=== PATIENT | male | born 1975 | race Caucasian/White ===

== ENCOUNTER 2019-04-12 10:02 | Emergency (ER) | payer OTHER ==
[~2019-04-12] VITALS: Ht 193 cm; Wt 98.9 kg
[2019-04-12] MEDS ORDERED: GABAPENTIN100 MG PO (10:11)
[2019-04-12] MEDS ORDERED: LEVAQUIN 750 M750 MG PO (10:11)
[2019-04-12] MEDS ORDERED: LIPITOR10 MG PO (10:12)
[2019-04-12] MEDS ORDERED: PROAIR HFA8.5 GM INH (10:12)
[2019-04-12 10:30] LABS: HEMATOCRIT 37.9 % (42.0-52.0); HEMOGLOBIN 12.9 gm/dL (14.0-18.0); MCH 28.8 pg (26.0-34.0); MCV 84.5 fL (80.0-100.0); MPV 8.2 fl. (7.2-11.1); NUCLEATED RBCS 0 /100WBC; PLATELET COUNT* 146 thou/uL (150-400); RBC 4.48 mil/uL (4.50-6.00); WBC 21.6 thou/uL (4.0-11.0)
[2019-04-12 10:47] LABS: CALCIUM 8.5 mg/dL (8.5-10.1); CREATININE 1.3 mg/dL (0.6-1.3); POTASSIUM 3.6 mmol/L (3.5-5.1)
[2019-04-12 10:51] LABS: ALBUMIN 2.5 g/dL (3.4-5.0); TOTAL BILIRUBIN 0.4 mg/dL (<0.1-1.0); TOTAL PROTEIN 6.7 g/dL (6.4-8.2)
[2019-04-12 11:19] LABS: URINE BILIRUBIN NEGATIVE (Negative); URINE BLOOD NEGATIVE (Negative); URINE CLARITY CLEAR; URINE COLOR YELLOW; URINE GLUCOSE-RANDOM NEGATIVE (Negative); URINE KETONES NEGATIVE (Negative); URINE LEUKOCYTES-REFLEX NEGATIVE (Negative); URINE NITRITE-REFLEX NEGATIVE (Negative); URINE PROTEIN TRACE (Negative); URINE SPECIFIC GRAVITY 1.025 (1.005-1.030); URINE UROBILINOGEN 0.2 E.U./dl (0.2-1.0)
[2019-04-12 11:22] LABS: ABSOLUTE LYMPHOCYTES 0.6 thou/uL (0.8-5.3); ABSOLUTE MONOCYTES 1.9 thou/uL (0.0-1.2); ANISOCYTOSIS 1+; PLATELET ESTIMATE DECREASED; POIKILOCYTOSIS 1+
[2019-04-12 11:47] LABS: INFLUENZA A ANTIGEN Negative (Negative); INFLUENZA B ANTIGEN Negative (Negative)
[2019-04-12] MEDS ORDERED: AMOXICILLIN 50500 MG PO (12:38)
[2019-04-12] MEDS ORDERED: PREDNISONE50 MG PO (12:38)
[2019-04-12] MEDS ORDERED: ZPAK PO (12:38)
[2019-04-12 12:46] VITALS: BP 109/79
--- NOTE | 2019-04-13 10:34 | EKG ---
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
== END 2019-04-12 12:48 | disposition home or self-care (01) ==
LOC: M.ERS 10:02
PROVIDERS: Nurse Practitioner Family
DX: J18.9 Pneumonia, unspecified organism (principal); G43.909 Migraine, unspecified, not intractable, without status migrainosus; E78.5 Hyperlipidemia, unspecified

== ENCOUNTER 2019-05-11 16:35 | Emergency (ER) | payer OTHER ==
[~2019-05-11] VITALS: Ht 193 cm; Wt 99.8 kg
[~2019-05-11 16:35] MED LIST: AMOXICILLIN 50500 MG PO; GABAPENTIN100 MG PO; LEVAQUIN 750 M750 MG PO; LIPITOR10 MG PO; PREDNISONE50 MG PO; PROAIR HFA8.5 GM INH; ZPAK PO
[2019-05-11 18:53] LABS: ABSOLUTE BASOPHILS 0.1 thou/uL (0.0-0.2); ABSOLUTE EOSINOPHILS 0.1 thou/uL (0.0-0.7); ABSOLUTE LYMPHOCYTES 1.2 thou/uL (0.8-5.3); ABSOLUTE MONOCYTES 0.5 thou/uL (0.0-1.2); ABSOLUTE NEUTROPHILS 4.7 thou/uL (1.6-8.1); BASOPHILS 0.8 %; EOSINOPHILS 2.1 %; HEMATOCRIT 37.5 % (42.0-52.0); HEMOGLOBIN 12.8 gm/dL (14.0-18.0); LYMPHOCYTES 17.6 %; MCH 28.5 pg (26.0-34.0); MCHC 34.1 g/dL (28.0-37.0); MCV 83.6 fL (80.0-100.0); MONOCYTES 7.8 %; MPV 7.4 fl. (7.2-11.1); NUCLEATED RBCS 0 /100WBC; PLATELET COUNT* 263 thou/uL (150-400); POLYS 71.7 %; RBC 4.48 mil/uL (4.50-6.00); RDW-CV 13.5 % (10.5-14.5); WBC 6.6 thou/uL (4.0-11.0)
[2019-05-11 19:02] LABS: CALCIUM 8.7 mg/dL (8.5-10.1); CREATININE 1.3 mg/dL (0.6-1.3); POTASSIUM 3.8 mmol/L (3.5-5.1)
[2019-05-11 19:12] LABS: ALBUMIN 3.1 g/dL (3.4-5.0); TOTAL BILIRUBIN 0.2 mg/dL (<0.1-1.0); TOTAL PROTEIN 7.1 g/dL (6.4-8.2)
[2019-05-11 19:52] LABS: URINE BILIRUBIN NEGATIVE (Negative); URINE BLOOD NEGATIVE (Negative); URINE CLARITY CLEAR; URINE COLOR YELLOW; URINE GLUCOSE-RANDOM NEGATIVE (Negative); URINE KETONES NEGATIVE (Negative); URINE LEUKOCYTES-REFLEX NEGATIVE (Negative); URINE NITRITE-REFLEX NEGATIVE (Negative); URINE PROTEIN NEGATIVE (Negative); URINE SPECIFIC GRAVITY >= 1.030 (1.005-1.030); URINE UROBILINOGEN 0.2 E.U./dl (0.2-1.0)
[2019-05-11 20:05] LABS: INFLUENZA A ANTIGEN Positive (Negative); INFLUENZA B ANTIGEN Negative (Negative)
[2019-05-11 20:14] LABS: AMP/METHAMP Negative (Negative); BARBITURATES Negative (Negative); BENZODIAZEPINES Negative (Negative); COCAINE Negative (Negative); METHADONE Negative (Negative); OPIATES Negative (Negative); PCP Negative (Negative); THC Negative (Negative)
[2019-05-11] MEDS ORDERED: BACTRIM DS TAB1 EACH PO (20:42)
[2019-05-11] MEDS ORDERED: ONDANSETRON ODT4 MG PO (20:42)
[2019-05-11] MEDS ORDERED: NORCO 5-325 TA1 EAC1 PO (20:42)
[2019-05-11 20:59] VITALS: BP 122/80
--- NOTE | 2019-05-14 13:56 | EKG ---
[place] [address] ELECTROCARDIOGRAM REPORT Name: FELIX WILLIAMSON [id number] Admission: 05/11/19 Attend Phys: Discharge: 05/11/19 Date of : 71 Date of Service: 05/11/19 1858 Report #: [id number] THIS REPORT FOR: cc: Natan Gold,Natan Velazquez,Keven Espinoza MD [facility] ~ THIS REPORT FOR: //name// [facility] ED Test Date: 2019-05-11 Test Time: 18:58:50 Pat Name: FELIX WILLIAMSON Department: Room: Gender: M [employer]chanisms Design Drafter: [place] : 1975 Requested By: Ronald Dickey Order Number: [id number] MD: Keven Wagner Measurements Intervals [place] Rate: 107 P: 32 DE: 139 QRS: 60 QRSD: 85 T: 19 QT: 300 QTc: 401 Interpretive Statements Sinus tachycardia Compared to ECG 04/12/2019 10:47:09 Sinus rate has increased T-wave abnormality no longer present Electronically Signed On 05-12-2019 16:06:23 JEWEL HOLE FINISH OPENER by Keven Wagner [email or web address] <ELECTRONICALLY SIGNED> By: Keven Wagner MD, FACC 05/12/19 1606 57 1858 Keven Wagner MD, FAC /EPI
== END 2019-05-11 21:01 | disposition home or self-care (01) ==
LOC: M.ERS 16:35
PROVIDERS: Physician Assistant
DX: J10.1 Influenza due to other identified influenza virus with other respiratory manifestations (principal); N41.9 Inflammatory disease of prostate, unspecified; G43.909 Migraine, unspecified, not intractable, without status migrainosus; E78.5 Hyperlipidemia, unspecified; Z79.899 Other long term (current) drug therapy